=== PATIENT | female | born 1985 | race Caucasian/White ===

== ENCOUNTER 2021-11-11 08:52 | Outpatient (CLI) | payer OTHER, SELFPAY | END 2021-11-11 08:53 | disposition home or self-care (01) | LOC: LKVREF 08:53 | PROVIDERS: Visit Provider Physician Assistant | DX: Z01.419 Encounter for gynecological examination (general) (routine) without abnormal findings (principal); N92.6 Irregular menstruation, unspecified; D64.9 Anemia, unspecified; Z12.4 Encounter for screening for malignant neoplasm of cervix; Z13.6 Encounter for screening for cardiovascular disorders; Z13.1 Encounter for screening for diabetes mellitus | CPT/HCPCS: 80061; 82947; 87624; 88175 ==

== ENCOUNTER 2022-11-13 08:48 | Outpatient (CLI) | payer OTHER, SELFPAY | END 2022-11-13 08:49 | disposition home or self-care (01) | LOC: NFLDREF 08:50 | PROVIDERS: Visit Provider Physician Assistant | DX: Z01.419 Encounter for gynecological examination (general) (routine) without abnormal findings (principal); Z13.6 Encounter for screening for cardiovascular disorders; Z13.1 Encounter for screening for diabetes mellitus | CPT/HCPCS: 80061; 82947 ==

== ENCOUNTER 2023-11-23 09:36 | Outpatient (CLI) | payer OTHER, SELFPAY | END 2023-11-23 09:37 | disposition home or self-care (01) | PROVIDERS: Visit Provider Physician Assistant | DX: Z01.419 Encounter for gynecological examination (general) (routine) without abnormal findings (principal); R53.83 Other fatigue; D64.9 Anemia, unspecified; N92.6 Irregular menstruation, unspecified; Z83.49 Family history of other endocrine, nutritional and metabolic diseases; Z13.6 Encounter for screening for cardiovascular disorders; Z13.1 Encounter for screening for diabetes mellitus | CPT/HCPCS: 80061; 80076; 82728; 83540; 83550; 84443 ==

== ENCOUNTER 2023-12-03 07:30 | Outpatient (CLI) | payer OTHER, SELFPAY | END 2023-12-03 07:31 | disposition home or self-care (01) | LOC: NFLDREF 12-07 15:47 | PROVIDERS: Visit Provider Physician Assistant | DX: R79.89 Other specified abnormal findings of blood chemistry (principal); D64.9 Anemia, unspecified | CPT/HCPCS: 82728; 83540; 83550 ==

== ENCOUNTER 2023-12-10 08:43 | Outpatient (CLI) | payer OTHER, SELFPAY | END 2023-12-10 08:44 | disposition home or self-care (01) | PROVIDERS: PCP Emergency Medicine; Visit Provider Emergency Medicine | DX: R79.89 Other specified abnormal findings of blood chemistry (principal) | CPT/HCPCS: 85045; 86140 ==

== ENCOUNTER 2024-01-06 10:13 | Outpatient (CLI) | payer OTHER, SELFPAY | END 2024-01-06 10:14 | disposition home or self-care (01) | LOC: NFLDREF 01-08 09:33 | PROVIDERS: PCP Emergency Medicine; Visit Provider Emergency Medicine | DX: R10.9 Unspecified abdominal pain (principal) | CPT/HCPCS: 87086 ==

== ENCOUNTER 2024-01-13 16:03 | Outpatient (CLI) | payer OTHER, SELFPAY ==
--- NOTE | 2024-01-13 16:45 | CRLHL7_ITS ---
For Patients: As a result of the Century Cures Act, medical imaging exams and procedure reports are released immediately into your electronic medical record. You may view this report before your referring provider. If you have questions, please contact your health care provider. INDICATION: Left lower quadrant abdominal pain X 1 week. TECHNIQUE: CT abdomen and pelvis acquired with 57 mL Isovue 370 contrast. COMPARISON: MRI abdomen dated 12/28/2023. FINDINGS: Lower chest: No focal consolidation. Liver: No suspicious focal hepatic lesion. Gallbladder and bile ducts: Unremarkable. Pancreas: Unremarkable. Spleen: Unremarkable. Adrenal glands: Unremarkable. Kidneys: Kidneys enhance symmetrically, without hydronephrosis. Too small to characterize hypodense left renal lesions. 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 Bowel and mesentery: Evaluation of the bowel and mesentery is limited secondary to a paucity of intra-abdominal fat. No evidence of bowel obstruction. No significant ascites, no pneumoperitoneum. Appendix not definitively seen. Bladder: Unremarkable for degree of distention. Reproductive organs: Small corpus luteum cyst is noted within the left ovary. Pelvic lymph nodes: No lymphadenopathy. Vessels: Unremarkable. Abdominal wall: No acute abdominal wall abnormality. Bones: No suspicious/aggressive focal osseous lesion. IMPRESSION: 1. 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 This is better characterized on the prior MRI dated 12/28/2023. 2. Small corpus luteum cyst is noted within the left ovary. Please note that all CT scans at this facility use dose modulation, iterative reconstruction, and/or weight-based dosing when appropriate to reduce radiation dose to as low as reasonably achievable. Dictated by Alejandra Rivera MD @ 01/16/2024 3:09:14 PM (Electronically Signed)
== END 2024-01-13 16:04 | disposition home or self-care (01) ==
LOC: CT 16:05
PROVIDERS: PCP Emergency Medicine; Visit Provider Emergency Medicine
DX: R10.31 Right lower quadrant pain (principal); N83.12 Corpus luteum cyst of left ovary
CPT/HCPCS: 74177; Q9967

== ENCOUNTER 2024-06-06 07:22 | Outpatient (CLI) | payer OTHER, SELFPAY | END 2024-06-06 07:23 | disposition home or self-care (01) | LOC: MAMMO 07:22 | PROVIDERS: PCP Emergency Medicine; Visit Provider Emergency Medicine | DX: N64.4 Mastodynia (principal); R92.333 Mammographic heterogeneous density, bilateral breasts | CPT/HCPCS: 76642; 77066; G0279 ==

== ENCOUNTER 2024-07-12 08:30 | Outpatient (RCR) | payer OTHER, SELFPAY ==
[2024-02-02 09:46] LABS: Basophils Absolute Auto 0.03 K/uL (0.00-0.30); Basophils Percent Auto 0.4 % (0.0-3.0); Eosinophils Absolute Auto 0.03 K/uL (0.00-0.50); Eosinophils Percent Auto 0.4 % (0.0-7.0); Hematocrit 42.4 % (33.0-51.0); Hemoglobin* 13.7 gm/dL (12.0-16.0); Immature Granulocytes Abs Auto 0.02 K/uL (0.00-0.30); Immature Granulocytes Pct Auto 0.2 %; Lymphocytes Percent Auto 10.1 % (20-44); Mean Corpuscular HGB Conc 32 gm/dL (32-36); Mean Corpuscular Hemoglobin 29 pg (26-34); Mean Corpuscular Volume 91 fL (80-100); Monocytes Percent Auto 9.3 % (0.0-11.0); Neutrophils Percent Auto 79.6 % (42.0-72.0); Platelet Count* 197 K/uL (140-440); RDW Coefficient of Variation % 12.8 % (11.5-15.5); Red Blood Count 4.68 m/uL (4.00-5.20); White Blood Count* 8.38 K/uL (4.50-11.00)
[2024-02-02 09:51] LABS: Slide Review Reflex No
[2024-02-02 10:16] LABS: Albumin* 4.7 g/dL (3.3-5.0)
[2024-02-02 10:17] LABS: Chloride* 101 mmol/L (96-114); Potassium* 4.2 mmol/L (3.6-5.1); Sodium* 137 mmol/L (135-149)
[2024-02-02 10:19] LABS: Bilirubin Total* 0.3 mg/dL (0.1-1.5); Creatinine* 0.6 mg/dL (0.5-1.5); Est. Creatinine Clearance* 105.77; Estimated Glomerular Filt Rate 118 ml/min; Iron* 43 ug/dL (37-170)
[2024-02-02 10:20] LABS: Alanine Aminotransferase* 14 U/L (4-35); Alkaline Phosphatase* 54 U/L (40-150); Anion Gap 9 mEq/L (7-15); Aspartate Amino Transferase* 22 U/L (12-35); Blood Urea Nitrogen* 11 mg/dL (5-24); Carbon Dioxide* 27 mmol/L (20-32); Glucose* 93 mg/dL (60-115); Total Protein* 6.8 g/dL (6.0-8.3)
[2024-02-02 10:21] LABS: Calcium* 9.8 mg/dL (8.4-10.6)
[2024-02-02 10:28] LABS: Percent Iron Saturation 17 % (20-50); Total Iron Binding Capacity 255 ug/dL (265-497)
[2024-02-02 11:09] LABS: Vitamin B12* 297 pg/mL (243-894)
[2024-02-04 01:15] LABS: Folate, Serum 8.5 ng/mL (>=5.9)
[2024-02-08 22:48] LABS: C282Y Hemochromatosis Mutation Negative; H63D Hemochromatosis Mutation Heterozygous; HFE PCR Specimen Whole Blood; S65C Hemochromatosis Mutation Negative
[2024-05-19 08:10] LABS: Basophils Absolute Auto 0.04 K/uL (0.00-0.30); Basophils Percent Auto 0.7 % (0.0-3.0); Eosinophils Absolute Auto 0.11 K/uL (0.00-0.50); Eosinophils Percent Auto 1.9 % (0.0-7.0); Hematocrit 42.6 % (33.0-51.0); Hemoglobin* 13.8 gm/dL (12.0-16.0); Lymphocytes Absolute Auto 1.58 K/uL (0.90-2.90); Lymphocytes Percent Auto 27.2 % (20-44); Mean Corpuscular HGB Conc 32 gm/dL (32-36); Mean Corpuscular Hemoglobin 29 pg (26-34); Mean Corpuscular Volume 90 fL (80-100); Monocytes Percent Auto 7.4 % (0.0-11.0); Neutrophils Absolute Auto 3.64 K/uL (1.7-7.0); Neutrophils Percent Auto 62.8 % (42.0-72.0); Platelet Count* 228 K/uL (140-440); RDW Coefficient of Variation % 12.2 % (11.5-15.5); Red Blood Count 4.71 m/uL (4.00-5.20)
[2024-05-19 08:13] LABS: Slide Review Reflex No
[2024-05-19 08:22] LABS: Albumin* 4.8 g/dL (3.3-5.0)
[2024-05-19 08:25] LABS: Alanine Aminotransferase* 15 U/L (4-35); Alkaline Phosphatase* 43 U/L (40-150); Aspartate Amino Transferase* 21 U/L (12-35); Bilirubin Direct* 0.1 mg/dL (0.0-0.5); Bilirubin Total* 0.7 mg/dL (0.1-1.5)
[2024-05-19 08:36] LABS: Iron* 167 ug/dL (37-170)
[2024-05-19 08:45] LABS: Percent Iron Saturation 64 % (20-50); Total Iron Binding Capacity 260 ug/dL (265-497)
[2024-05-19 09:15] LABS: Vitamin B12* 302 pg/mL (243-894)
[2024-07-04 08:22] LABS: Basophils Absolute Auto 0.03 K/uL (0.00-0.30); Basophils Percent Auto 0.5 % (0.0-3.0); Eosinophils Absolute Auto 0.07 K/uL (0.00-0.50); Eosinophils Percent Auto 1.1 % (0.0-7.0); Hematocrit 41.5 % (33.0-51.0); Hemoglobin* 13.5 gm/dL (12.0-16.0); Immature Granulocytes Abs Auto 0.01 K/uL (0.00-0.30); Immature Granulocytes Pct Auto 0.2 %; Lymphocytes Absolute Auto 1.26 K/uL (0.90-2.90); Lymphocytes Percent Auto 20.3 % (20-44); Mean Corpuscular HGB Conc 33 gm/dL (32-36); Mean Corpuscular Hemoglobin 29 pg (26-34); Mean Corpuscular Volume 90 fL (80-100); Monocytes Percent Auto 7.4 % (0.0-11.0); Neutrophils Absolute Auto 4.38 K/uL (1.7-7.0); Neutrophils Percent Auto 70.5 % (42.0-72.0); Platelet Count* 236 K/uL (140-440); RDW Coefficient of Variation % 12.2 % (11.5-15.5); White Blood Count* 6.21 K/uL (4.50-11.00)
[2024-07-04 08:28] LABS: Slide Review Reflex No
[2024-07-04 09:02] LABS: Iron* 137 ug/dL (37-170)
[2024-07-04 09:12] LABS: Percent Iron Saturation 54 % (20-50); Total Iron Binding Capacity 252 ug/dL (265-497)
== END 2024-07-31 23:59 | disposition home or self-care (01) ==
LOC: CCIC 08:30
PROVIDERS: PCP Emergency Medicine; Referring Provider Emergency Medicine; Visit Provider Internal Medicine Hematology & Oncology
DX: E83.110 Hereditary hemochromatosis (principal); R79.89 Other specified abnormal findings of blood chemistry
CPT/HCPCS: 36415; 80053; 80076; 81256; 82607; 82728; 82746; 83540; 83550; 85025; 99195; 99202; 99203; 99213; 99214; 99215; G0463

== ENCOUNTER 2024-09-13 08:30 | Outpatient (RCR) | payer OTHER, SELFPAY ==
[2024-09-08 08:19] LABS: Hematocrit* 40.0 % (33.0-51.0); Hemoglobin* 12.8 gm/dL (12.0-16.0); Immature Granulocytes Abs Auto 0.01 K/uL (0.00-0.30); Immature Granulocytes Pct Auto 0.1 %; Mean Corpuscular HGB Conc 32 gm/dL (32-36); Mean Corpuscular Hemoglobin 29 pg (26-34); Mean Corpuscular Volume 91 fL (80-100); RDW Coefficient of Variation % 12.5 % (11.5-15.5); Red Blood Count* 4.41 m/uL (4.00-5.20); White Blood Count* 8.05 K/uL (4.50-11.00)
[2024-09-08 08:21] LABS: Lymphocytes Absolute Auto 1.50 K/uL (0.90-2.90); Slide Review Reflex No
[2024-09-08 08:34] LABS: Iron* 97 ug/dL (37-170)
[2024-09-08 08:44] LABS: Percent Iron Saturation 38 % (20-50); Total Iron Binding Capacity 253 ug/dL (265-497)
[2024-09-08 09:25] LABS: Vitamin B12* 860 pg/mL (243-894)
== END 2025-03-07 23:59 | disposition home or self-care (01) ==
LOC: CCIC 08:30
PROVIDERS: PCP Emergency Medicine; Visit Provider Internal Medicine Hematology & Oncology
DX: E83.110 Hereditary hemochromatosis (principal); R79.89 Other specified abnormal findings of blood chemistry; E53.8 Deficiency of other specified B group vitamins
CPT/HCPCS: 36415; 82607; 82728; 83540; 83550; 85025; 99213; G0463

== ENCOUNTER 2024-12-09 07:24 | Outpatient (CLI) | payer OTHER, SELFPAY | END 2024-12-09 07:25 | disposition home or self-care (01) | LOC: NFLDREF 12-13 08:36 | PROVIDERS: PCP Emergency Medicine; Referring Provider Emergency Medicine; Visit Provider Internal Medicine Hematology & Oncology | DX: E83.110 Hereditary hemochromatosis (principal) | CPT/HCPCS: 82607; 82728; 83540; 83550 ==

== ENCOUNTER 2025-02-13 09:36 | Outpatient (CLI) | payer OTHER, SELFPAY | END 2025-02-13 09:37 | disposition home or self-care (01) | PROVIDERS: Visit Provider Physician Assistant | DX: E53.8 Deficiency of other specified B group vitamins (principal); E83.110 Hereditary hemochromatosis; R79.89 Other specified abnormal findings of blood chemistry; Z13.9 Encounter for screening, unspecified | CPT/HCPCS: 80053; 80061; 82306; 82607; 82728; 83540; 83550 ==

== ENCOUNTER 2025-03-09 07:30 | Outpatient (CLI) | payer OTHER, SELFPAY | END 2025-03-09 07:31 | disposition home or self-care (01) | LOC: NFLDREF 03-14 18:10 | PROVIDERS: Visit Provider Internal Medicine Hematology & Oncology | DX: E83.110 Hereditary hemochromatosis (principal) | CPT/HCPCS: 82607; 82728; 83540; 83550 ==